=== PATIENT | male | born 1980 | race Caucasian/White ===

== ENCOUNTER 2019-06-22 09:52 | Emergency (ER) | payer OTHER ==
[2019-06-22] MEDS ORDERED: HYDROmorphone 1 MG/ML Syringe IM ONE (10:21)
--- NOTE | 2019-06-22 10:27 | EDM.PDOC ---
ED HPI GENERAL MEDICAL PROBLEM - General Chief Complaint: Back Pain or Injury Stated Complaint: BACK INJURY Time Seen by Provider: 06/22/19 10:07 Source of Information: Reports: Patient History Limitations: Reports: No Limitations - History of Present Illness INITIAL COMMENTS - FREE TEXT/NARRATIVE: HISTORY AND PHYSICAL: History of present illness: Patient is a 38-year-old male who presents to the emergency room with complaints of thoracic back pain. He states approximately one week ago he had slipped and fallen on the ice and noticed some thoracic back pain. He denies hitting his head or having any loss of consciousness at this time. He states he was able to get up and ambulate and go on with this day. The pain lasted for 24- 48 hours and seemed to resolve on its own. Last evening he bent down to chart picker his dog and had sharp pain across his thoracic He states anytime he has to engage his thoracic back muscles he has increased pain. He denies any numbness, tingling, saddle paresthesias. He denies any urinary or fecal incontinence. Offers no systemic complaints. Review of systems: As per history of present illness and below otherwise all systems reviewed and negative. Past medical history: As per history of present illness and as reviewed below otherwise noncontributory. Surgical history: As per history of present illness and as reviewed below otherwise noncontributory. Social history: See social history for further information Family history: As per history of present illness and as reviewed below otherwise noncontributory. Physical exam: General: Well-developed and well-nourished 38-year-old male. Alert and oriented. Nontoxic appearing and in no acute distress. HEENT: Atraumatic, normocephalic, pupils equal and reactive bilaterally, negative for conjunctival pallor or scleral icterus, mucous membranes moist, trachea midline. No drooling or trismus noted. No meningeal signs. No hot potato voice noted. Lungs: Clear to auscultation, breath sounds equal bilaterally, chest nontender. Heart: S1S2, regular rate and rhythm without overt murmur Abdomen: Soft, nondistended, nontender. Negative for masses or hepatosplenomegaly. Negative for costovertebral tenderness. Pelvis: Stable nontender. C-spine/Back: No pinpoint vertebral tenderness upon palpation. No crepitus, step -offs or obvious deformities. Paraspinous muscular tenderness to the thoracic region bilaterally. Patient is ambulatory into the emergency room without difficulty or deficit. Able to rock back on heels and walk on toes. Denies any urinary or fecal incontinence. Denies any numbness, tingling or saddle paresthesia. Skin: Intact, warm, dry. No lesions or rashes noted. Extremities: Moves all extremities per self without difficulty or deficits, negative for cords or calf pain. Neurovascular unremarkable. Neuro: Awake, alert, oriented. Cranial nerves II through XII unremarkable. Cerebellum unremarkable. Motor and sensory unremarkable throughout. Exam nonfocal. Notes: Patient declines the pain medication once the nurse went to go give it. He states he felt a little better at this time. X-ray shows no fracture or subluxation in the thoracic spine. Slight degenerative and hypertrophic changes. Remainder is negative. Supportive care measures were reviewed and discussed. Voices understanding and is agreeable to plan of care. Denies any further questions or concerns at this time. Diagnostics: Thoracic X-ray Therapeutics: Dilaudid Prescription: [place] (#20) Impression: Thoracic Back Pain Plan: 1. The medication you received today does cause drowsiness, so do not drive for the remaining day 2. When resting please lay on a flat firm surface. Limit your immobility to prevent muscle stiffness. Get up to ambulate/move around/gentle stretching multiple times throughout the day. May alternate heat and ice to the painful areas 3. Tylenol and/or Ibuprofen as needed for back pain. [place] as directed, this medication may cause drowsiness a do not take it will driving her needing to be functioning outside of the house. 4. Please follow-up with your primary care provider as we discussed. Return to the ED as needed and as discussed. Definitive disposition and diagnosis as appropriate pending reevaluation and review of above. Middle Back Pain Score (Numeric/FACES): 8 - Related Data Allergies Allergy/AdvReac Type Severity Reaction Status Date / Time No Known Allergies Allergy Verified 06/22/19 10:14 Home Meds: Home Meds Acetaminophen/HYDROcodone [[place] 325-5 MG] 1 dose PO Q4H #20 tablet 06/22/19 [Rx ] Past Medical History - Past Health History Medical/Surgical History: Denies Medical/Surgical History - Infectious Disease History Infectious Disease History: Reports: Chicken Pox Social & Family History - Family History Family Medical History: Noncontributory - Tobacco Use Smoking Status *Q: Former Smoker Used Tobacco, but Quit: Yes Month/Year Tobacco Last Used: 12/2018 - Caffeine Use Caffeine Use: Reports: Coffee, Soda - Recreational Drug Use Recreational Drug Use: No ED ROS GENERAL - Review of Systems Review Of Systems: Comprehensive ROS is negative, except as noted in HPI. ED EXAM, UPPER BACK/NECK PAIN - Physical Exam Exam: See Below (See dictation) Course - Vital Signs Last Recorded V/S: Last Vital Signs Temp 98.9 F 06/22/19 10:15 Pulse 63 06/22/19 10:59 Resp 18 06/22/19 10:59 BP 137/87 06/22/19 10:59 Pulse Ox 96 06/22/19 10:59 - Orders/Labs/Meds Meds: Medications Discontinued Medications Generic Name Dose Route Start Last Admin Trade Name Freq PRN Reason Stop Dose Admin Hydromorphone HCl 1 mg 06/22/19 10:21 06/22/19 10:58 Dilaudid IM 06/22/19 10:22 Not Given ONETIME ONE Departure - Departure Time of Disposition: 11:15 Disposition: Home, Self-Care 01 Clinical Impression: Thoracic back pain Qualifiers: Chronicity: acute Back pain laterality: bilateral Qualified Code(s): M54.6 - Pain in thoracic spine - Discharge Information Prescriptions: Acetaminophen/HYDROcodone [[place] 325-5 MG] 1 dose PO Q4H #20 tablet Instructions: Thoracic Strain, [id number] Referrals: PCP,Not In Area [Primary Care Provider] - Forms: ED Department Discharge Additional Instructions: The following information is given to patients seen in the emergency department who are being discharged to home. This information is to outline your options for follow-up care. We provide all patients seen in our emergency department with a follow-up referral. The need for follow-up, as well as the timing and circumstances, are variable depending upon the specifics of your emergency department visit. If you don't have a primary care physician on staff, we will provide you with a referral. We always advise you to contact your personal physician following an emergency department visit to inform them of the circumstance of the visit and for follow-up with them and/or the need for any referrals to a consulting specialist. The emergency department will also refer you to a specialist when appropriate. This referral assures that you have the opportunity for follow-up care with a specialist. All of these measure are taken in an effort to provide you with optimal care, which includes your follow-up. Under all circumstances we always encourage you to contact your private physician who remains a resource for coordinating your care. When calling for follow-up care, please make the office aware that this follow-up is from your recent emergency room visit. If for any reason you are refused follow-up, please contact the [facility] Emergency Department at and asked to speak to the emergency department charge nurse. [facility] [address] [place] [address] [facility] [address] [place] [id number] 1. The medication you received today does cause drowsiness, so do not drive for the remaining day 2. When resting please lay on a flat firm surface. Limit your immobility to prevent muscle stiffness. Get up to ambulate/move around/gentle stretching multiple times throughout the day. May alternate heat and ice to the painful areas 3. Tylenol and/or Ibuprofen as needed for back pain. [place] as directed, this medication may cause drowsiness a do not take it will driving her needing to be functioning outside of the house. 4. Please follow-up with your primary care provider as we discussed. Return to the ED as needed and as discussed.
--- NOTE | 2019-06-22 11:09 | CR ---
INDICATION: Fall. Back pain. TECHNIQUE: Four views thoracic spine. FINDINGS: No fracture or subluxation in the thoracic spine. Slight degenerative and hypertrophic changes in thoracic spine. Remainder negative. Dictated by Jabari Lemos MD @ Jun 22 2019 11:08AM Signed by Dr. Jabari Lemos @ Jun 22 2019 11:08AM
== END 2019-06-22 11:35 | disposition home or self-care (01) ==
LOC: MW.ED 09:52
DX: M54.6 Pain in thoracic spine (principal); W00.0XXA Fall on same level due to ice and snow, initial encounter; Z87.891 Personal history of nicotine dependence
CPT/HCPCS: 72072; 72072-26; 99283-25